=== PATIENT | male | born 1995 | race African-American/Black ===

== ENCOUNTER 2021-11-27 16:24 | Emergency (ER) | payer OTHER ==
[2021-11-27 16:34] VITALS: BP 110/71; PULSE 74; TEMP 98; BMI 31.6
[2021-11-27] MEDS ORDERED: SODIUM CHLORIDE 1,000 ML IV STA (17:18)
[2021-11-27] MEDS ORDERED: ONDANSETRON 4 MG/2 ML VIAL IVPUSH ONE (17:18)
[2021-11-27] MEDS ORDERED: PANTOPRAZOLE SODIUM 40 MG VIAL IVPB ONE (17:18)
[2021-11-27] MEDS ORDERED: DICYCLOMINE HCL 20 MG TABLET PO ONE (17:18)
[2021-11-27] MEDS ORDERED: PANTOPRAZOLE SODIUM 40 MG VIAL ONE (17:25)
[2021-11-27] MEDS ORDERED: ONDANSETRON 4 MG/2 ML VIAL ONE (17:25)
[2021-11-27] MEDS ORDERED: DICYCLOMINE HCL 10 MG CAPSULE ONE (17:25)
[2021-11-27 18:10] LABS: BASO % 0.5 % (0-2.0); EOS % 0.5 % (0-4.5); HEMATOCRIT 47.8 % (35.4-49); HEMOGLOBIN 16.2 GM/dL (11.7-16.9); LYMPH % 3.9 % (8-40); MCH 30.6 pg (25.7-33.7); MCHC 33.9 g/dl (32.0-35.9); MEAN CELL VOLUME 90.2 fl (80-96); MEAN PLT VOLUME 9.3 fl (7.5-11.1); MONO % 6.1 % (3.8-10.2); PLATELET COUNT 255 10^3/uL (134-434); RDW 12.7 % (11.9-15.9)
[2021-11-27 18:25] LABS: EPI CELLS 9 /uL (0-25.1); HYALINE CASTS 2 /uL (0-3.1); URINE APPEARANCE CLEAR; URINE BACTERIA 14 /uL (0-1359); URINE BILIRUBIN NEGATIVE (NEGATIVE); URINE COLOR YELLOW; URINE GLUCOSE (UA) NEGATIVE (NEGATIVE); URINE KETONE 3+ (NEGATIVE); URINE LEUK ESTERASE NEGATIVE (NEGATIVE); URINE NITRITE NEGATIVE (NEGATIVE); URINE PROTEIN 1+ (NEGATIVE); URINE RBC 12 /uL (0-23.9); URINE WBC 13 /uL (0-25.8)
[2021-11-27 18:29] LABS: CHLORIDE 103 mmol/L (98-107); SODIUM 134 mmol/L (136-145)
[2021-11-27 18:31] LABS: CALCIUM 9.7 mg/dL (8.5-10.1)
[2021-11-27 18:32] LABS: ALBUMIN 4.2 g/dl (3.4-5.0); CO2 26 mmol/L (21-32); GLUCOSE,RANDOM 92 mg/dL (74-106); LIPASE 44 U/L (73-393); MAGNESIUM 2.4 mg/dL (1.8-2.4)
[2021-11-27 18:34] LABS: CREATININE 1.6 mg/dL (0.55-1.3)
[2021-11-27 18:35] LABS: PHOSPHOROUS 2.9 mg/dL (2.5-4.9)
[2021-11-27 18:36] LABS: BILIRUBIN,TOTAL 0.6 mg/dL (0.2-1)
[2021-11-27 18:38] LABS: ALK PHOS 79 U/L (45-117); ANION GAP 5 MMOL/L (8-16); SGOT/AST 99 U/L (15-37); SGPT/ALT 36 U/L (13-61)
[2021-11-27] MEDS ORDERED: SODIUM CHLORIDE 0.9% 500 ML INFUS.BAG IV ONE (19:00)
[2021-11-27 20:12] LABS: CHLORIDE 106 mmol/L (98-107); SODIUM 137 mmol/L (136-145)
[2021-11-27 20:13] LABS: BLOOD UREA NITROGEN 8.7 mg/dL (7-18); CALCIUM 9.4 mg/dL (8.5-10.1); CO2 27 mmol/L (21-32); GLUCOSE,RANDOM 94 mg/dL (74-106)
[2021-11-27 20:17] LABS: CREATININE 1.6 mg/dL (0.55-1.3)
[2021-11-27 20:29] LABS: ANION GAP 4 MMOL/L (8-16)
[2021-11-27 20:54] LABS: BLOOD UREA NITROGEN 9.7 mg/dL (7-18); CALCIUM 9.9 mg/dL (8.5-10.1)
[2021-11-27 20:58] LABS: CREATININE 1.5 mg/dL (0.55-1.3)
[2021-11-27 21:55] LABS: CALCIUM 8.9 mg/dL (8.5-10.1)
[2021-11-27 21:56] LABS: BLOOD UREA NITROGEN 9.4 mg/dL (7-18)
[2021-11-27 21:59] LABS: CREATININE 1.4 mg/dL (0.55-1.3)
[2021-11-28 18:08] LABS: SARS-CoV-2 NAA Not Detected (Not Detected)
== END 2021-11-27 21:27 | disposition home or self-care (01) ==
LOC: JER 16:24
PROC: 3E033GC Introduction of Other Therapeutic Substance into Peripheral Vein, Percutaneous Approach (ICD-10-PCS; principal; 2021-11-27)
PROC: 3E033GC Introduction of Other Therapeutic Substance into Peripheral Vein, Percutaneous Approach (ICD-10-PCS; 2021-11-27)
PROC: 3E0337Z Introduction of Electrolytic and Water Balance Substance into Peripheral Vein, Percutaneous Approach (ICD-10-PCS; 2021-11-27)
DX: K52.9 Noninfective gastroenteritis and colitis, unspecified (principal)
CPT/HCPCS: 36415; 80048; 80053; 81003; 83690; 83735; 84100; 85025; 99284-25; C9803; U0003; U0005